=== PATIENT | female | born 1945 | race Caucasian/White ===

== ENCOUNTER 2020-05-03 11:09 | Inpatient (IN) | payer MEDICARE, OTHER ==
[~2020-05-03] VITALS: Ht 162.6 cm; Wt 77.5 kg
[2020-05-03] MEDS ORDERED: normal saline 1000ML IV soln IVB ONE (11:30)
[2020-05-03 11:40] LABS: BASOPHILS % (AUTO) 0.2 % (0-1); EOSINOPHILS # (AUTO) 0.3 X10'3 (0-0.9); EOSINOPHILS % (AUTO) 1.6 % (0-6); HEMATOCRIT 42.1 % (35.0-45.0); HEMOGLOBIN 14.2 g/dl (12.0-16.0); LYMPHOCYTES # (AUTO) 1.7 X10'3 (1.1-4.8); LYMPHOCYTES % (AUTO) 8.6 % (21-51); MEAN CORPUSCULAR HEMOGLOBIN 31.5 PG (27.0-31.0); MEAN CORPUSCULAR HGB CONC 33.6 g/dL (33.0-36.5); MEAN CORPUSCULAR VOLUME 93.7 FL (78-98); MEAN PLATELET VOLUME 8.9 FL (7.4-10.4); MONOCYTES # (AUTO) 0.7 X10'3 (0-0.9); MONOCYTES % (AUTO) 3.4 % (2-12); NEUTROPHILS # (AUTO) 16.9 X10'3 (1.8-7.7); NEUTROPHILS % (AUTO) 86.2 % (42-75); PLATELET COUNT 113 X10'3 (140-440); RED CELL DISTRIBUTION WIDTH 12.9 % (11.5-14.5); WHITE BLOOD COUNT 19.6 X10'3 (4.5-11.0)
--- NOTE | 2020-05-03 11:44 | NUR ---
STROKE NURSE MIMI WITH PT
[2020-05-03 11:48] LABS: PARTIAL THROMBOPLASTIN TIME 27 SECONDS (22-32)
[2020-05-03 11:49] LABS: ALANINE AMINOTRANSFERASE 30 U/L (12-78); ALBUMIN 2.6 G/DL (3.4-5.0); ALBUMIN/GLOBULIN RATIO 0.5 (1.1-1.5); ALKALINE PHOSPHATASE 221 IU/L (46-116); ANION GAP 15 (8-16); ASPARTATE AMINO TRANSFERASE 21 U/L (10-37); BLOOD UREA NITROGEN 69 MG/DL (7-18); BUN/CREATININE RATIO 15.5 (6.6-38.0); CALCIUM 9.1 MG/DL (8.5-10.1); CHLORIDE 107 MMOL/L (99-107); CREATININE 4.44 MG/DL (0.40-0.90); GLUCOSE 97 MG/DL (70-104); POTASSIUM 4.5 MMOL/L (3.5-5.1); SODIUM 141 MMOL/L (135-145); TOTAL CARBON DIOXIDE 18.6 MMOL/L (24-32); TOTAL PROTEIN 7.4 G/DL (6.4-8.2); eGFR 10 ML/MIN
[2020-05-03 11:54] LABS: ETHANOL < 0.010 GM/DL (0.0-0.010)
[2020-05-03 11:56] LABS: TROPONIN I < 0.04 NG/ML (0.0-0.05)
[2020-05-03 12:14] LABS: BANDS% (MANUAL) 13 % (0-10); EOSINOPHILS % (MANUAL) 1 % (0-6); LYMPHOCYTES % (MANUAL) 19 % (21-51); MONOCYTES % (MANUAL) 2 % (2-12); NEUTROPHILS % (MANUAL) 65 % (42-75); PLATELET ESTIMATE DECREASED; POLYCHROMASIA FEW; TOTAL CELLS COUNTED 100
[2020-05-03 12:15] LABS: TOXIC GRANULATION 1+
[2020-05-03 12:51] LABS: CLARITY,URINE SLIGHTLY CLOUDY (Clear); COLOR,URINE YELLOW (Yellow); GLUCOSE, URINE NEGATIVE (Neg); KETONES,URINE NEGATIVE (Neg); LEUKOCYTE ESTERASE ,URINE MODERATE (Neg); NITRITES, URINE NEGATIVE (Neg); OCCULT BLOOD,URINE MODERATE (Neg); PROTEIN,URINE 100 mg/dl (Neg)
[2020-05-03] MEDS ORDERED: ondansetron/PF 4mg/2ml inj IV PRN (13:00)
[2020-05-03 13:08] LABS: UA COLLECTION TYPE STRAIGHT CATH
[2020-05-03 13:09] LABS: BACTERIA,URINE 4+ /HPF (Neg); SQUAMOUS EPITHELIAL CELL,UR FEW /LPF (FEW); WBC,URINE TNTC /HPF (0-4)
[2020-05-03 13:10] LABS: MUCUS STRANDS NONE SEEN /LPF (Neg); WBC CLUMPS,URINE FEW /HPF (NEGATIVE)
[2020-05-03] MEDS ORDERED: DICL100G30 TOP (13:13)
[2020-05-03] MEDS: normal saline 1000ml 1,000 ML IV SCH ×2 (13:13→19:38)
[2020-05-03] MEDS ORDERED: BACL10TA PO (13:13)
[2020-05-03] MEDS ORDERED: ESCI20TA45 PO (13:13)
--- NOTE | 2020-05-03 14:44 | NUR ---
DR. MCALLISTER IN TO SEE PT FOR ADMIT
--- NOTE | 2020-05-03 15:42 | NUR ---
received report from ADILSON Mccarty in ED. Pt anticipated to arrive to [id number] shortly
[2020-05-03 16:00] VITALS: BP 127/82
--- NOTE | 2020-05-03 17:30 | NUR ---
PAGER ID: [phone] MESSAGE: Shirley [id number] kang Carey in [id number]- please call me, thanks
[2020-05-03] MEDS: dextrose 5%-normal saline 1,000 ML IV SCH (17:40)
[2020-05-03 18:00] VITALS: BP 116/91
--- NOTE | 2020-05-03 18:53 | NUR ---
PAGER ID: [phone] MESSAGE: [id number] Mrs Martinez Aurelio HR suddenly in 150-160's. vitals are stable, 116/91 no apparent distress
[2020-05-03] MEDS ORDERED: LORazepam 2 mg/ml vial IV ONE (19:05)
[2020-05-03] MEDS: CefTRIAXone/D5W-Rocephin 1gm 50 ML IV SCH (19:49)
[2020-05-03 22:00] VITALS: BP 120/69
[2020-05-04] VITALS (7 sets, daily range): BP systolic 132–151; BP diastolic 66–87
[2020-05-04] MEDS ORDERED: aspirin 81mg tab.chew PO ONE (00:05)
[2020-05-04] MEDS: dextrose 5%-normal saline 1,000 ML IV SCH ×3 (03:40→23:40)
[2020-05-04] MEDS: normal saline 1000ml 1,000 ML IV SCH ×2 (05:01→18:59)
[2020-05-04 06:28] LABS: BASOPHILS % (AUTO) 0.3 % (0-1); EOSINOPHILS % (AUTO) 0.2 % (0-6); HEMATOCRIT 38.3 % (35.0-45.0); HEMOGLOBIN 12.8 g/dl (12.0-16.0); LYMPHOCYTES # (AUTO) 1.2 X10'3 (1.1-4.8); LYMPHOCYTES % (AUTO) 8.8 % (21-51); MEAN CORPUSCULAR HEMOGLOBIN 31.2 PG (27.0-31.0); MEAN CORPUSCULAR HGB CONC 33.4 g/dL (33.0-36.5); MEAN CORPUSCULAR VOLUME 93.4 FL (78-98); MEAN PLATELET VOLUME 8.5 FL (7.4-10.4); MONOCYTES # (AUTO) 1.1 X10'3 (0-0.9); MONOCYTES % (AUTO) 7.9 % (2-12); NEUTROPHILS # (AUTO) 11.6 X10'3 (1.8-7.7); NEUTROPHILS % (AUTO) 82.8 % (42-75); PLATELET COUNT 104 X10'3 (140-440)
[2020-05-04 06:46] LABS: ALBUMIN 2.2 G/DL (3.4-5.0); ANION GAP 17 (8-16); BLOOD UREA NITROGEN 63 MG/DL (7-18); BUN/CREATININE RATIO 20.1 (6.6-38.0); CALCIUM 8.6 MG/DL (8.5-10.1); CHLORIDE 110 MMOL/L (99-107); CREATININE 3.13 MG/DL (0.40-0.90); GLUCOSE 109 MG/DL (70-104); POTASSIUM 4.1 MMOL/L (3.5-5.1); SODIUM 144 MMOL/L (135-145); TOTAL CARBON DIOXIDE 17.5 MMOL/L (24-32); eGFR 14 ML/MIN
[2020-05-04] MEDS: CefTRIAXone/D5W-Rocephin 1gm 50 ML IV SCH (09:26)
[2020-05-04] MEDS: aspirin 81mg tab.chew PO SCH (09:26)
--- NOTE | 2020-05-04 11:58 | NUR ---
Bladder scanned x2 patient post void 59mls
--- NOTE | 2020-05-04 17:25 | NUR ---
Patient at MRI, spoke with son Kisha.
--- NOTE | 2020-05-04 17:40 | NUR ---
Arms are twitching Addendum: 05/04/20 at 1744 by Jelena Nails RN Amended: Links added.
--- NOTE | 2020-05-04 17:45 | NUR ---
Patient back from MRI, put on commode no urine output. Put patient back to bed, and she asked "Am I getting better?" and I stated "You just spoke a complete sentence and that is and improvement from 6am this morning."
--- NOTE | 2020-05-04 18:26 | NUR ---
Problems reprioritized. Patient report given, questions answered & plan of care reviewed with Maria E DE ANDA.
[2020-05-04] MEDS: lactobacillus rhamnosus 10,000 MMU CELLS/CAPSULE PO SCH (19:43)
--- NOTE | 2020-05-04 22:39 | NUR ---
called MD to notify him of patient being in AFIB with RVR. New order for IV push Cardizem x 1 and daily PO Cardizem. Eliquis ordered for 1 time.
[2020-05-04] MEDS ORDERED: apixaban 5mg tablet PO ONE (22:40)
[2020-05-04] MEDS ORDERED: diltiazem 5mg/ml 5ml inj. IV ONE (22:40)
[2020-05-04] MEDS ORDERED: digoxin 250mcg/ml 2ml ampule ONE (22:40)
[2020-05-05] VITALS (7 sets, daily range): BP systolic 115–169; BP diastolic 58–98
[2020-05-05] MEDS: diltiazem-NS 100mg/100ml 100 ML IV SCH ×3 (00:15→19:54)
--- NOTE | 2020-05-05 00:15 | NUR ---
Called Dr. Vaughn to inform him that patient is still in the 140's afib after cardizem ivp was given and asked about a cardizem dripp and to transfer to telemetry unit.
--- NOTE | 2020-05-05 00:41 | NUR ---
Problems reprioritized. Patient report given, questions answered & plan of care reviewed with ADILSON Carson. patient brought to room and bedside report given.
--- NOTE | 2020-05-05 00:41 | NUR ---
Patient in room PCU 3017. I have received report from Maria E DE ANDA and had the opportunity to ask questions and assume patient care.
--- NOTE | 2020-05-05 01:21 | NUR ---
[id number] - Michelle Carey - Patient was transferred to PCU from ortho/neuro pt is in [facility] - [facility]. Cardizem 10ml/hr gtt has yet to be started shall I hold the gtt for now? [phone] Alli DE ANDA
[2020-05-05] MEDS: normal saline 1000ml 1,000 ML IV SCH ×3 (04:59→19:55)
--- NOTE | 2020-05-05 06:13 | NUR ---
Patient in room PCU 3017. I have received report from ADILSON Carson and had the opportunity to ask questions and assume patient care.
--- NOTE | 2020-05-05 06:21 | NUR ---
Problems reprioritized. Patient report given, questions answered & plan of care reviewed with Mike DE ANDA
[2020-05-05 06:46] LABS: BASOPHILS % (AUTO) 0.2 % (0-1); EOSINOPHILS % (AUTO) 0.2 % (0-6); HEMOGLOBIN 12.8 g/dl (12.0-16.0); LYMPHOCYTES # (AUTO) 1.2 X10'3 (1.1-4.8); MEAN CORPUSCULAR HEMOGLOBIN 31.5 PG (27.0-31.0)
[2020-05-05 06:48] LABS: HEMATOCRIT 37.8 % (35.0-45.0); LYMPHOCYTES % (AUTO) 9.6 % (21-51); MEAN CORPUSCULAR HGB CONC 33.8 g/dL (33.0-36.5); MEAN CORPUSCULAR VOLUME 93.1 FL (78-98); MEAN PLATELET VOLUME 8.4 FL (7.4-10.4); MONOCYTES # (AUTO) 1.4 X10'3 (0-0.9); MONOCYTES % (AUTO) 10.6 % (2-12); NEUTROPHILS # (AUTO) 10.3 X10'3 (1.8-7.7); NEUTROPHILS % (AUTO) 79.4 % (42-75); PLATELET COUNT 118 X10'3 (140-440); RED BLOOD COUNT 4.06 X10'6 (4.20-5.60); RED CELL DISTRIBUTION WIDTH 12.9 % (11.5-14.5)
[2020-05-05 06:51] LABS: ALBUMIN 2.1 G/DL (3.4-5.0); ANION GAP 11 (8-16); BLOOD UREA NITROGEN 43 MG/DL (7-18); BUN/CREATININE RATIO 19.5 (6.6-38.0); CALCIUM 8.6 MG/DL (8.5-10.1); CHLORIDE 113 MMOL/L (99-107); GLUCOSE 141 MG/DL (70-104); SODIUM 144 MMOL/L (135-145); TOTAL CARBON DIOXIDE 19.9 MMOL/L (24-32); eGFR 22 ML/MIN
[2020-05-05] MEDS: aspirin 81mg tab.chew PO SCH (07:59)
[2020-05-05] MEDS: lactobacillus rhamnosus 10,000 MMU CELLS/CAPSULE PO SCH ×2 (07:59→19:52)
[2020-05-05] MEDS ORDERED: diltiazem CD 180mg cap (once-daily) PO SCH (08:00)
[2020-05-05] MEDS: dextrose 5%-normal saline 1,000 ML IV SCH ×2 (08:56→19:52)
[2020-05-05] MEDS: CefTRIAXone/D5W-Rocephin 1gm 50 ML IV SCH (08:56)
--- NOTE | 2020-05-05 09:10 | NUR ---
PAGER ID: [phone] MESSAGE: [id number] Michelle Carey is complaining of 10/10 back pain. Can we order her something? ADILSON Mckeon Ext [phone]
[2020-05-05] MEDS ORDERED: traMADol 50MG tablet PO ONE (09:35)
[2020-05-05] MEDS: citalopram 20mg tablet PO SCH (11:43)
--- NOTE | 2020-05-05 18:16 | NUR ---
Problems reprioritized. Patient report given, questions answered & plan of care reviewed with ADILSON Dunlap.
--- NOTE | 2020-05-05 18:32 | NUR ---
Patient in room PCU 3017. I have received report from ADILSON Mckeon and had the opportunity to ask questions and assume patient care.
[2020-05-06 02:00] VITALS: BP 157/90
[2020-05-06] MEDS ORDERED: diazepam 5mg tablet PO ONE (04:25)
[2020-05-06] MEDS: dextrose 5%-normal saline 1,000 ML IV SCH ×2 (05:39→17:22)
[2020-05-06 06:00] VITALS: BP 125/62
[2020-05-06] MEDS: diltiazem-NS 100mg/100ml 100 ML IV SCH ×2 (06:15→16:15)
--- NOTE | 2020-05-06 06:18 | NUR ---
Problems reprioritized. Patient report given, questions answered & plan of care reviewed with ADILSON Phoenix.
[2020-05-06 06:45] LABS: ALBUMIN 2.2 G/DL (3.4-5.0); ANION GAP 12 (8-16); BLOOD UREA NITROGEN 29 MG/DL (7-18); BUN/CREATININE RATIO 16.7 (6.6-38.0); CALCIUM 9.1 MG/DL (8.5-10.1); CHLORIDE 110 MMOL/L (99-107); CREATININE 1.74 MG/DL (0.40-0.90); GLUCOSE 112 MG/DL (70-104); POTASSIUM 3.8 MMOL/L (3.5-5.1); SODIUM 142 MMOL/L (135-145); eGFR 28 ML/MIN
--- NOTE | 2020-05-06 06:53 | NUR ---
Patient in room PCU 3017. I have received report from ADILSON HARVEY and had the opportunity to ask questions and assume patient care.
--- NOTE | 2020-05-06 06:58 | NUR ---
PATIENT HAS A FEVER OF 101.5 AXILLARY AND HEART RATE OF 115, PAGED DR FOR TYLENOL. AWAITING CALL BACK
[2020-05-06 07:13] LABS: BASOPHILS % (AUTO) 0 % (0-1); EOSINOPHILS # (AUTO) 0.1 X10'3 (0-0.9); EOSINOPHILS % (AUTO) 0.9 % (0-6); HEMATOCRIT 40.1 % (35.0-45.0); HEMOGLOBIN 13.6 g/dl (12.0-16.0); LYMPHOCYTES % (AUTO) 13.4 % (21-51); MEAN CORPUSCULAR HEMOGLOBIN 32.1 PG (27.0-31.0); MEAN CORPUSCULAR HGB CONC 33.8 g/dL (33.0-36.5); MEAN CORPUSCULAR VOLUME 94.9 FL (78-98); MEAN PLATELET VOLUME 8.6 FL (7.4-10.4); MONOCYTES # (AUTO) 0.1 X10'3 (0-0.9); NEUTROPHILS # (AUTO) 6.3 X10'3 (1.8-7.7); NEUTROPHILS % (AUTO) 84.7 % (42-75); PLATELET COUNT 138 X10'3 (140-440); RED BLOOD COUNT 4.23 X10'6 (4.20-5.60); WHITE BLOOD COUNT 7.4 X10'3 (4.5-11.0)
[2020-05-06] MEDS ORDERED: acetaminophen 325mg tablet PO PRN (07:25)
[2020-05-06] MEDS: lactobacillus rhamnosus 10,000 MMU CELLS/CAPSULE PO SCH ×2 (08:41→19:39)
[2020-05-06] MEDS: aspirin 81mg tab.chew PO SCH (08:41)
[2020-05-06] MEDS: citalopram 20mg tablet PO SCH (08:42)
[2020-05-06] MEDS: CefTRIAXone/D5W-Rocephin 1gm 50 ML IV SCH (08:45)
[2020-05-06 08:58] LABS: TOTAL CELLS COUNTED 100
[2020-05-06 09:04] LABS: BURR CELLS FEW; LARGE PLATELETS FEW; PLATELET ESTIMATE DECREASED; POLYCHROMASIA FEW; TOXIC VACUOLATION FEW
--- NOTE | 2020-05-06 10:38 | NUR ---
pt having difficulty grasping items, could not grab spoon or feed herself.
[2020-05-06] MEDS: normal saline 1000ml 1,000 ML IV SCH (10:59)
[2020-05-06 11:00] VITALS: BP 129/85
[2020-05-06] MEDS: traMADol 50MG tablet PO PRN ×2 (13:00→19:39)
[2020-05-06 15:00] VITALS: BP 125/76
[2020-05-06 18:00] VITALS: BP 140/84
--- NOTE | 2020-05-06 18:36 | NUR ---
Patient in room PCU 3017. I have received report from Lizett DE ANDA and had the opportunity to ask questions and assume patient care.
--- NOTE | 2020-05-06 18:41 | NUR ---
Problems reprioritized. Patient report given, questions answered & plan of care reviewed with ADILSON WALTON.
--- NOTE | 2020-05-06 19:42 | NUR ---
administering patient's medications by using administer tab as scanner is not operating on this computer. Cultrelle and tramadol given. Patient is c/o back pain of 6/10. Assmt completed. No other complaints or distress noted.
[2020-05-06 22:00] VITALS: BP 149/89
[2020-05-07] MEDS: traMADol 50MG tablet PO PRN (01:46)
[2020-05-07 02:00] VITALS: BP 123/63
[2020-05-07 06:00] VITALS: BP 119/77
--- NOTE | 2020-05-07 06:41 | NUR ---
Problems reprioritized. Patient report given, questions answered & plan of care reviewed with Radha DE ANDA.
[2020-05-07] MEDS: lactobacillus rhamnosus 10,000 MMU CELLS/CAPSULE PO SCH (08:32)
[2020-05-07] MEDS: CefTRIAXone/D5W-Rocephin 1gm 50 ML IV SCH (08:32)
[2020-05-07] MEDS: citalopram 20mg tablet PO SCH (08:33)
[2020-05-07] MEDS: aspirin 81mg tab.chew PO SCH (08:33)
[2020-05-07] MEDS ORDERED: CIPR-230 PO (10:42)
[2020-05-07 11:00] VITALS: BP 147/89
--- NOTE | 2020-05-07 14:18 | NUR ---
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
--- NOTE | 2020-05-07 18:50 | NUR ---
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 Cipro called in to [facility] per pt request.
--- NOTE | 2020-05-12 10:41 | NUR ---
Case Management DC follow up: spoke to pt good friend, CG, via telephone. S/P:slurred speech, toxic encephalopathy. Reports: "doing so much better, speech is back to normal, appetite has improved, stronger". Denies: acute cp, SOB, resp distress, vertigo, syncope, significant weakness, blurry vision, N/V, NEGRON, emergent general pain, abd tenderness/distension, fever, s/s stroke FAST. Verbalizes understanding of s/s that warrant 9-11/ER visit for evaluation. Verbalizes understanding of new Rx: Cipro and why prescribed, resumes current Rx/taking as ordered, no ase noted. Acknowledges need to schedule/keep follow up appts w/ PCP/Jose De Jesus, has packet to establish. [facility] 05/12/20. Needs met, questions answered at DC, no further questions at this time.
== END 2020-05-07 15:10 | disposition home health service (06) | DRG 871 ==
LOC: ER 11:12 → ED HOLD 12:59 → ORTHO 4S 16:00 → PCU 3S 05-05 00:36 → UNDODISIN 05-06 20:00
PROVIDERS: ADMIT Internal Medicine; ATTEND Internal Medicine
DX: A41.9 Sepsis, unspecified organism (principal); G92 Toxic encephalopathy; N17.0 Acute kidney failure with tubular necrosis; N39.0 Urinary tract infection, site not specified; E86.0 Dehydration; G89.29 Other chronic pain; B96.1 Klebsiella pneumoniae [K. pneumoniae] as the cause of diseases classified elsewhere; M54.5 Low back pain; F32.9 Major depressive disorder, single episode, unspecified; I12.9 Hypertensive chronic kidney disease with stage 1 through stage 4 chronic kidney disease, or unspecified chronic kidney disease; N18.9 Chronic kidney disease, unspecified; Z79.899 Other long term (current) drug therapy
CPT/HCPCS: 36415; 70450; 70544; 70547; 70551; 71045; 80048; 80053; 80320; 81001; 82948; 83605; 84484; 85025; 85610; 85730; 87040; 87077; 87081; 87088; 87186; 92508; 92616; 93005; 93306; 97161; 97530; 97535; 99285; G0378; J0696; J1160; J2060; J3490; J7030; J7042